=== PATIENT | male | born 1960 | race Caucasian/White ===

== ENCOUNTER → 2025-02-04 07:55 | Outpatient (CLI) | payer MEDICARE, OTHER, SELFPAY ==
[2025-02-04 09:22] LABS: Cholesterol 162 mg/dL (140-199); HDL Cholesterol 36 mg/dL (40-60); Triglycerides 257 mg/dL (35-150)
== END ==
PROVIDERS: PCP Nurse Practitioner Family; Referring Provider Nurse Practitioner Family; Visit Provider Nurse Practitioner Family
DX: Z13.220 Encounter for screening for lipoid disorders (principal)
CPT/HCPCS: 36415; 80061